=== PATIENT | male | born 1990 | race African-American/Black ===

== ENCOUNTER 2019-11-06 21:10 | Emergency (ER) | payer OTHER ==
[~2019-11-06] VITALS: Ht 185.4 cm; Wt 93.0 kg
--- NOTE | 2019-11-06 23:05 | PHYS DOC ---
Past Medical History Attending Signature I have participated in the care of this patient and I have reviewed and agree with all pertinent clinical information above including history, exam, and recommendations. (SADI VEGA MD) Adult General Chief Complaint Chief Complaint: ABDOMINAL PAIN HPI HPI Patient is a 28 year old male who presents with patient states over the weekend he had some kind of food poisoning and was vomiting a lot. He states on Monday he began having right-sided mid abdominal pain especially with movement. Patient states he's been trying to take muscle relaxers and eating icy hot is not working. 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 Patient has no other complaints and denies fever, constipation, diarrhea, nausea, vomiting, chest pain, shortness of air, cough, headache, dizziness. He rates his pain a 7 out of 10 with movement. He states he has not been able to go to work due to the pain. (MICHAEL BANUELOS APRN) Review of Systems Review of Systems GI: abdominal pain, denies nausea, vomiting, bloody stools or diarrhea [] All other systems were reviewed and found to be within normal limits, except as documented in this note. (MICHAEL BANUELOS APRN) Current Medications Current Medications Current Medications Medications (Trade) Dose Ordered Sig/Francheska Start Time Stop Time Status Last Admin Dose Admin Info (CONTRAST GIVEN -- Rx MONITORING) 1 each PRN DAILY PRN 11/06/19 23:30 11/07/19 00:49 DC Iohexol (Omnipaque 300 Mg/ml) 75 ml 1X ONCE 11/06/19 23:30 11/06/19 23:31 DC 11/06/19 23:55 75 ML Ketorolac Tromethamine (Toradol 30mg Vial) 30 mg 1X ONCE 11/06/19 23:30 11/06/19 23:31 DC 11/06/19 23:16 30 MG Sodium Chloride 1,000 ml @ 1,000 mls/hr Q1H 11/06/19 23:30 11/07/19 00:29 DC 11/06/19 23:17 1,000 MLS/HR (SADI VEGA MD) Allergies Allergies Allergies Coded Allergies Type Severity Reaction Last Updated Verified No Known Drug Allergies 11/06/19 No (SADI VEGA MD) Physical Exam Physical Exam Constitutional: Well developed, well nourished, no acute distress, non-toxic appearance. [] HENT: Normocephalic, atraumatic, bilateral external ears normal, oropharynx moist, no oral exudates, nose normal. [] Eyes: PERRLA, EOMI, conjunctiva normal, no discharge. [] Neck: Normal range of motion, no tenderness, supple, no stridor. [] Cardiovascular:Heart rate regular rhythm, no murmur [] Lungs & Thorax: Bilateral breath sounds clear to auscultation [] Abdomen: Bowel sounds normal, soft, Right mid tenderness, no masses, no pulsatile masses. [] Skin: Warm, dry, no erythema, no rash. [] Back: No tenderness, no CVA tenderness. [] Extremities: No tenderness, no cyanosis, no clubbing, ROM intact, no edema. [] Neurologic: Alert and oriented X 3, normal motor function, normal sensory function, no focal deficits noted. [] Psychologic: Affect normal, judgement normal, mood normal. [] (MICHAEL BANUELOS APRN) Current Patient Data Vital Signs Vital Signs Date Time Temp Pulse Resp B/P (MAP) Pulse Ox O2 Delivery O2 Flow Rate FiO2 11/06/19 23:14 68 16 124/59 (80) 98 11/06/19 22:03 97.6 Room Air 97.6 (SADI VEGA MD) Lab Values Laboratory Tests Test 11/06/19 22:55 White Blood Count 6.0 x10^3/uL (4.0-11.0) Red Blood Count 5.31 x10^6/uL (4.30-5.70) Hemoglobin 12.2 g/dL (13.0-17.5) L Hematocrit 38.1 % (39.0-53.0) L Mean Corpuscular Volume 72 fL (79-100) L Mean Corpuscular Hemoglobin 23 pg (25-35) L Mean Corpuscular Hemoglobin Concent 32 g/dL (31-37) Red Cell Distribution Width 15.1 % (11.5-14.5) H Platelet Count 210 x10^3/uL (140-400) Neutrophils (%) (Auto) 27 % (31-73) L Lymphocytes (%) (Auto) 65 % (24-48) H Monocytes (%) (Auto) 8 % (0-9) Eosinophils (%) (Auto) 0 % (0-3) Basophils (%) (Auto) 1 % (0-3) Neutrophils # (Auto) 1.6 x10^3/uL (1.8-7.7) L Lymphocytes # (Auto) 3.9 x10^3/uL (1.0-4.8) Monocytes # (Auto) 0.5 x10^3/uL (0.0-1.1) Eosinophils # (Auto) 0.0 x10^3/uL (0.0-0.7) Basophils # (Auto) 0.0 x10^3/uL (0.0-0.2) Segmented Neutrophils % 34 % (35-66) L Lymphocytes % 52 % (24-48) H Atypical Lymphocytes % (Manual) 4 % (0-0) H Monocytes % 8 % (0-10) Eosinophils % 2 % (0-5) Platelet Estimate Adequate (ADEQUATE) Hypochromasia Slight Poikilocytosis Slight Microcytosis Slight Prothrombin Time 14.2 SEC (11.7-14.0) H Prothrombin Time INR 1.1 (0.8-1.1) Urine Collection Type Unknown Urine Color Kanwal Urine Clarity Clear Urine pH 6.0 Urine Specific [place] >=1.030 Urine Protein 30 mg/dL (NEG-TRACE) Urine Glucose (UA) Negative mg/dL (NEG) Urine Ketones (Stick) Trace mg/dL (NEG) Urine Blood Large (NEG) Urine Nitrite Negative (NEG) Urine Bilirubin Small (NEG) Urine Urobilinogen Dipstick 1.0 mg/dL (0.2 mg/dL) Urine Leukocyte Esterase Trace (NEG) Urine RBC >40 /HPF (0-2) Urine WBC 11-20 /HPF (0-4) Urine Squamous Epithelial Cells Few /LPF Urine Bacteria Few /HPF (0-FEW) Sodium Level 141 mmol/L (136-145) Potassium Level 3.7 mmol/L (3.5-5.1) Chloride Level 104 mmol/L (98-107) Carbon Dioxide Level 26 mmol/L (21-32) Anion Gap 11 (6-14) Blood Urea Nitrogen 14 mg/dL (8-26) Creatinine 1.3 mg/dL (0.7-1.3) Estimated GFR (Cockcroft-Gault) 78.4 BUN/Creatinine Ratio 11 (6-20) Glucose Level 96 mg/dL (70-99) Calcium Level 8.5 mg/dL (8.5-10.1) Total Bilirubin 0.4 mg/dL (0.2-1.0) Aspartate Amino Transferase (AST) 22 U/L (15-37) Alanine Aminotransferase (ALT) 30 U/L (16-63) Alkaline Phosphatase 51 U/L (46-116) Total Protein 6.6 g/dL (6.4-8.2) Albumin 3.8 g/dL (3.4-5.0) Albumin/Globulin Ratio 1.4 (1.0-1.7) Lipase 131 U/L (73-393) Urine Opiates Screen Neg (NEG) Urine Methadone Screen Neg (NEG) Urine Barbiturates Neg (NEG) Urine Phencyclidine Screen Neg (NEG) Urine Amphetamine/Methamphetamine Neg (NEG) Urine Benzodiazepines Screen Neg (NEG) Urine Cocaine Screen Neg (NEG) Urine Cannabinoids Screen Pos (NEG) Urine Ethyl Alcohol Neg (NEG) Laboratory Tests 11/06/19 22:55 Laboratory Tests 11/06/19 22:55 (SADI VEGA MD) Lab Values Laboratory Tests Test 11/06/19 22:55 White Blood Count 6.0 x10^3/uL (4.0-11.0) Red Blood Count 5.31 x10^6/uL (4.30-5.70) Hemoglobin 12.2 g/dL (13.0-17.5) L Hematocrit 38.1 % (39.0-53.0) L Mean Corpuscular Volume 72 fL (79-100) L Mean Corpuscular Hemoglobin 23 pg (25-35) L Mean Corpuscular Hemoglobin Concent 32 g/dL (31-37) Red Cell Distribution Width 15.1 % (11.5-14.5) H Platelet Count 210 x10^3/uL (140-400) Neutrophils (%) (Auto) 27 % (31-73) L Lymphocytes (%) (Auto) 65 % (24-48) H Monocytes (%) (Auto) 8 % (0-9) Eosinophils (%) (Auto) 0 % (0-3) Basophils (%) (Auto) 1 % (0-3) Neutrophils # (Auto) 1.6 x10^3/uL (1.8-7.7) L Lymphocytes # (Auto) 3.9 x10^3/uL (1.0-4.8) Monocytes # (Auto) 0.5 x10^3/uL (0.0-1.1) Eosinophils # (Auto) 0.0 x10^3/uL (0.0-0.7) Basophils # (Auto) 0.0 x10^3/uL (0.0-0.2) Segmented Neutrophils % 34 % (35-66) L Lymphocytes % 52 % (24-48) H Atypical Lymphocytes % (Manual) 4 % (0-0) H Monocytes % 8 % (0-10) Eosinophils % 2 % (0-5) Platelet Estimate Adequate (ADEQUATE) Hypochromasia Slight Poikilocytosis Slight Microcytosis Slight Prothrombin Time 14.2 SEC (11.7-14.0) H Prothrombin Time INR 1.1 (0.8-1.1) Urine Collection Type Unknown Urine Color Kanwal Urine Clarity Clear Urine pH 6.0 Urine Specific [place] >=1.030 Urine Protein 30 mg/dL (NEG-TRACE) Urine Glucose (UA) Negative mg/dL (NEG) Urine Ketones (Stick) Trace mg/dL (NEG) Urine Blood Large (NEG) Urine Nitrite Negative (NEG) Urine Bilirubin Small (NEG) Urine Urobilinogen Dipstick 1.0 mg/dL (0.2 mg/dL) Urine Leukocyte Esterase Trace (NEG) Urine RBC >40 /HPF (0-2) Urine WBC 11-20 /HPF (0-4) Urine Squamous Epithelial Cells Few /LPF Urine Bacteria Few /HPF (0-FEW) Sodium Level 141 mmol/L (136-145) Potassium Level 3.7 mmol/L (3.5-5.1) Chloride Level 104 mmol/L (98-107) Carbon Dioxide Level 26 mmol/L (21-32) Anion Gap 11 (6-14) Blood Urea Nitrogen 14 mg/dL (8-26) Creatinine 1.3 mg/dL (0.7-1.3) Estimated GFR (Cockcroft-Gault) 78.4 BUN/Creatinine Ratio 11 (6-20) Glucose Level 96 mg/dL (70-99) Calcium Level 8.5 mg/dL (8.5-10.1) Total Bilirubin 0.4 mg/dL (0.2-1.0) Aspartate Amino Transferase (AST) 22 U/L (15-37) Alanine Aminotransferase (ALT) 30 U/L (16-63) Alkaline Phosphatase 51 U/L (46-116) Total Protein 6.6 g/dL (6.4-8.2) Albumin 3.8 g/dL (3.4-5.0) Albumin/Globulin Ratio 1.4 (1.0-1.7) Lipase 131 U/L (73-393) Urine Opiates Screen Neg (NEG) Urine Methadone Screen Neg (NEG) Urine Barbiturates Neg (NEG) Urine Phencyclidine Screen Neg (NEG) Urine Amphetamine/Methamphetamine Neg (NEG) Urine Benzodiazepines Screen Neg (NEG) Urine Cocaine Screen Neg (NEG) Urine Cannabinoids Screen Pos (NEG) Urine Ethyl Alcohol Neg (NEG) Laboratory Tests 11/06/19 22:55 Laboratory Tests 11/06/19 22:55 (MICHAEL BANUELOS APRN) EKG EKG [] (MICHAEL BANUELOS APRN) Radiology/Procedures Radiology/Procedures [] (MICHAEL BANUELOS APRN) Impressions: [facility] [address] [place], [place] [id number] IMAGING REPORT Signed PATIENT: GITA AMAYA ACCOUNT: [id number] : 1990 LOCATION: ER AGE: 28 SEX: M EXAM STATUS: REG ER ORD. PHYSICIAN: MICHAEL BANUELOS APRN REASON: abd pain PROCEDURE: CT ABD PELV W/ IV CONTRST ONLY Study: CT abdomen/pelvis with intravenous contrast Indication: Abdominal pain. Comparison: None. Technique: Helical CT imaging performed of the abdomen and pelvis after the intravenous administration of 75 cc Omnipaque 300 contrast. Sagittal and coronal reformats were obtained. One or more of the following individualized dose reduction techniques were utilized for this examination: 1. Automated exposure control 2. Adjustment of the mA and/or kV according to patient size 3. Use of iterative reconstruction technique. Findings: Chest: Unremarkable. Liver: No acute abnormality. Gallbladder/Biliary Tree: Partially collapsed. Pancreas: Unremarkable. Spleen: Unremarkable. Adrenal Glands: Normal morphology. Kidneys/Ureters/Bladder: Multiple intrarenal stones bilaterally. No hydroureteronephrosis. No stone is seen within either ureter or within the urinary bladder. Tiny foci of mineralization within the left hemipelvis appear to be outside the ureteral lumen and favored secondary to phleboliths. Reproductive Organs: Within normal limits. Colon: Limited evaluation without oral contrast. No acute abnormality is seen. Appendix: Favored to be seen along the posterior aspect of the ascending colon such as on image 48 series 3 and exhibiting a normal appearance. No regional inflammatory changes at its expected location. Small Bowel: Limited evaluation without oral contrast. No obstruction. Stomach: Distended with ingested material. Vasculature: Unremarkable portal veins and superior mesenteric vein. Normal aortic caliber. Lymph Nodes: No concerning lymph nodes by size criteria. Peritoneum and Body Wall: No free fluid or air. Symmetric muscular bulk. Bones: Left eccentric disc bulge at L4-L5 is incompletely characterized. No acute osseous abnormality. Miscellaneous: None. Impression: 1. Numerous intrarenal stones on both the right and left but no stone is seen within either ureter or within the urinary bladder and there is no collecting system dilatation. A few punctate foci of mineralization at the left hemipelvis appear to be outside of the ureter and are favored phleboliths. Collectively no acute abnormality seen throughout the abdomen or pelvis. 2. Probable left eccentric disc bulge at L4-L5 which is not well characterized by technique. There does not appear to be significant central canal stenosis but a degree of left lateral recess stenosis may be present. Electronically signed by: ADAM PEREYRA MD (11/07/2019 12:15 AM) [id number] DICTATED and SIGNED BY: ADAM PEREYRA MD DATE: 11/07/19 0015 (MICHAEL BANUELOS APRN) Course & Med Decision Making Course & Med Decision Making Pertinent Labs and Imaging studies reviewed. (See chart for details) Speaks in full clear sentences. Ambulatory with steady gait. Alert and oriented. Skin pink warm and dry. Vital signs within normal limits. Abdomen is soft but tender at right mid abdomen. Lungs are clear to auscultation all lobes. And is again exacerbated by movement or palpation. Blood work unremarkable. Patient has many kidney stones in the kidneys. Patient will be referred to urology. The pain he is feeling is most likely muscle related. Urinalysis is contaminated. But it will be sent off for culture. [] (MICHAEL BANUELOS APRN) Dragon Disclaimer Dragon Disclaimer This electronic medical record was generated, in whole or in part, using a voice recognition dictation system. (MICHAEL BANUELOS APRN) Departure Departure Impression: Primary Impression: Abdominal wall pain Additional Impression: Renal stones Disposition: HOME, SELF-CARE Condition: STABLE Referrals: NO PCP (PCP) Patient Instructions: Abdominal Pain (Nonspecific) Additional Instructions: Follow-up with urology concerning for renal stones. Call [facility] for follow- up. Drink Plenty of fluids. Continue taking ibuprofen to help with pain. Rest your abdominal muscles. Follow up with a primary care provider if needed. Problem Qualifiers MICHAEL BANUELOS APRN Nov 06, 2019 23:05 SADI VEGA MD Nov 07, 2019 01:22
[2019-11-06 23:11] LABS: PROTHROMBIN TIME PATIENT 14.2 SEC (11.7-14.0)
[2019-11-06 23:12] LABS: BASO % 1 % (0-3); EOS % 0 % (0-3); HEMATOCRIT 38.1 % (39.0-53.0); HEMOGLOBIN 12.2 g/dL (13.0-17.5); LYMPH # 3.9 x10^3/uL (1.0-4.8); LYMPH % 65 % (24-48); MEAN CORPUSCULAR HEMOGLOBIN 23 pg (25-35); MEAN CORPUSCULAR HGB CONC 32 g/dL (31-37); MEAN CORPUSCULAR VOLUME 72 fL (79-100); MONO # 0.5 x10^3/uL (0.0-1.1); MONO % 8 % (0-9); NEUT # 1.6 x10^3/uL (1.8-7.7); NEUT % 27 % (31-73); PLATELET COUNT 210 x10^3/uL (140-400); RED BLOOD COUNT 5.31 x10^6/uL (4.30-5.70); RED CELL DISTRIBUTION WIDTH 15.1 % (11.5-14.5)
[2019-11-06 23:14] VITALS: BP 124/59
[2019-11-06 23:20] LABS: CALCIUM 8.5 mg/dL (8.5-10.1); CREATININE 1.3 mg/dL (0.7-1.3); GFR 78.4; POTASSIUM 3.7 mmol/L (3.5-5.1)
[2019-11-06 23:25] LABS: ALBUMIN 3.8 g/dL (3.4-5.0); ALBUMIN/GLOBULIN RATIO 1.4 (1.0-1.7); TOTAL BILIRUBIN 0.4 mg/dL (0.2-1.0); TOTAL PROTEIN 6.6 g/dL (6.4-8.2)
[2019-11-06] MEDS ORDERED: IOHEXOL 300 MG/ML 100ML VIAL. IV ONE (23:30)
[2019-11-06] MEDS ORDERED: KETOROLAC 30 MG/ML VIAL. IVP ONE (23:30)
[2019-11-06] MEDS ORDERED: IV NORMAL SALINE 1000ML BAG 1,000 ML IV SCH (23:30)
[2019-11-06] MEDS ORDERED: CONTRAST GIVEN. MC PRN (23:30)
[2019-11-06 23:31] LABS: BILIRUBIN,URINE SMALL (NEG); CLARITY,URINE CLEAR; COLOR,URINE AMBER; NITRITE,URINE NEGATIVE (NEG); PROTEIN,URINE 30 mg/dL (NEG-TRACE)
[2019-11-06 23:38] LABS: BARBITURATES NEG (NEG); BENZODIAZEPINES NEG (NEG); CANNABINOIDS POS (NEG); COCAINE NEG (NEG); METHADONE NEG (NEG); OPIATES NEG (NEG); PHENCYCLIDINE NEG (NEG)
[2019-11-06 23:40] LABS: AMPHETAMINE/METHAMPHETAMINE NEG (NEG)
[2019-11-06 23:41] LABS: % ATYL 4 % (0-0); % EOS 2 % (0-5); % LYMPHS 52 % (24-48); % MONOS 8 % (0-10); % SEGS 34 % (35-66); PLT ESTIMATE ADEQUATE (ADEQUATE)
[2019-11-06 23:42] LABS: BACTERIA,URINE FEW /HPF (0-FEW); HYPOCHROMIA SLIGHT; MICROCYTOSIS SLIGHT; RBC,URINE >40 /HPF (0-2); SQUAMOUS EPITHELIAL CELL,UR FEW /LPF
[2019-11-06 23:43] LABS: POIKILOCYTOSIS SLIGHT
--- NOTE | 2019-11-07 00:19 | RAD ---
Study: CT abdomen/pelvis with intravenous contrast Indication: Abdominal pain. Comparison: None. Technique: Helical CT imaging performed of the abdomen and pelvis after the intravenous administration of 75 cc Omnipaque 300 contrast. Sagittal and coronal reformats were obtained. One or more of the following individualized dose reduction techniques were utilized for this examination: 1. Automated exposure control 2. Adjustment of the mA and/or kV according to patient size 3. Use of iterative reconstruction technique. Findings: Chest: Unremarkable. Liver: No acute abnormality. Gallbladder/Biliary Tree: Partially collapsed. Pancreas: Unremarkable. Spleen: Unremarkable. Adrenal Glands: Normal morphology. Kidneys/Ureters/Bladder: Multiple intrarenal stones bilaterally. No hydroureteronephrosis. No stone is seen within either ureter or within the urinary bladder. Tiny foci of mineralization within the left hemipelvis appear to be outside the ureteral lumen and favored secondary to phleboliths. Reproductive Organs: Within normal limits. Colon: Limited evaluation without oral contrast. No acute abnormality is seen. Appendix: Favored to be seen along the posterior aspect of the ascending colon such as on image 48 series 3 and exhibiting a normal appearance. No regional inflammatory changes at its expected location. Small Bowel: Limited evaluation without oral contrast. No obstruction. Stomach: Distended with ingested material. Vasculature: Unremarkable portal veins and superior mesenteric vein. Normal aortic caliber. Lymph Nodes: No concerning lymph nodes by size criteria. Peritoneum and Body Wall: No free fluid or air. Symmetric muscular bulk. Bones: Left eccentric disc bulge at L4-L5 is incompletely characterized. No acute osseous abnormality. Miscellaneous: None. Impression: 1. Numerous intrarenal stones on both the right and left but no stone is seen within either ureter or within the urinary bladder and there is no collecting system dilatation. A few punctate foci of mineralization at the left hemipelvis appear to be outside of the ureter and are favored phleboliths. Collectively no acute abnormality seen throughout the abdomen or pelvis. 2. Probable left eccentric disc bulge at L4-L5 which is not well characterized by technique. There does not appear to be significant central canal stenosis but a degree of left lateral recess stenosis may be present. Electronically signed by: ADAM PEREYRA MD (11/07/2019 12:15 AM) [id number]
== END 2019-11-07 00:48 | disposition home or self-care (01) ==
LOC: ER 21:10
DX: N20.0 Calculus of kidney (principal); R11.10 Vomiting, unspecified; R10.9 Unspecified abdominal pain
CPT/HCPCS: 36415; 74177; 80053; 80307; 81001; 83690; 85007; 85025; 85610; 87086; 96361; 96374; 99285; J1885; J7030; Q9967